=== PATIENT | female | born 1945 | race Caucasian/White ===

== ENCOUNTER 2022-12-28 07:44 | Outpatient (CLI) | payer MEDICARE, BC | END 2022-12-28 07:45 | disposition home or self-care (01) | LOC: ULT 07:44 | PROVIDERS: ATTEND Internal Medicine Nephrology | DX: N18.30 Chronic kidney disease, stage 3 unspecified (principal); N28.1 Cyst of kidney, acquired; N39.43 Post-void dribbling | CPT/HCPCS: 76770; 93975 ==